=== PATIENT | female | born 1990 | race Caucasian/White ===

== ENCOUNTER 2019-05-16 19:20 | Emergency (ER) | payer SELFPAY ==
[2019-05-16] MEDS ORDERED: KETOROLAC TROMETHAMINE INJ/PF 30 MG/1 ML SDV IV ONE (19:50)
[2019-05-16] MEDS ORDERED: DIPHENHYDRAMINE HCL 50 MG/ML VIAL IV ONE (19:50)
[2019-05-16] MEDS ORDERED: METOCLOPRAMIDE HCL INJ/PF 10 MG/2 ML SDV IV ONE (19:50)
--- NOTE | 2019-05-16 19:53 | ER Document Report ---
ED Medical Screen (RME) - General Chief Complaint: Headache <24 hrs old Stated Complaint: LOW BACK PAIN,HEADACHE Time Seen by Provider: 05/16/19 19:43 Notes: Patient is a 28-year-old female who presents to the emergency department with a chief complaint of a headache and low back pain. Patient states that she gets headaches every once in a while and normally takes ibuprofen and Tylenol and it goes away. She ended up taking ibuprofen last night and went to sleep and did not have any relief of her symptoms. Patient states that she her headache is on the frontal area of her head, just above the eyebrows and goes back behind her eyes. Patient reports some photophobia. Exam: Tearful. 5 out of 5 strength in all extremities. I have greeted and performed a rapid initial assessment of this patient. A comprehensive ED assessment and evaluation of the patient, analysis of test results and completion of medical decision making process will be conducted by an additional ED providers. TRAVEL OUTSIDE OF THE [place] IN LAST 30 DAYS: No - Related Data Allergies/Adverse Reactions: codeine Allergy (Verified 05/16/19 19:50) Past Medical History - Social History Frequency of alcohol use: Occasional Physical Exam - Vital signs Vitals: Temp Pulse Resp BP Pulse Ox 97.8 F 84 18 131/76 H 100 05/16/19 19:28 05/16/19 19:28 05/16/19 19:28 05/16/19 19:28 05/16/19 19:28 Course - Vital Signs Vital signs: Temp Pulse Resp BP Pulse Ox 98.0 F 81 24 H 119/74 97 05/16/19 19:37 05/16/19 19:37 05/16/19 19:37 05/16/19 19:37 05/16/19 19:37
[2019-05-16 20:18] LABS: ABSOLUTE EOSINOPHILS # (AUTO) 0.2 10^3/uL (0.0-0.6); TOTAL CELLS COUNTED % (AUTO) 100 %
[2019-05-16 20:21] LABS: ABSOLUTE MONOCYTES (AUTO) 0.5 10^3/uL (0.1-1.4); ABSOLUTE NEUT (AUTO) 4.7 10^3/uL (1.7-8.2); BASOPHILS % (AUTO) 0.6 % (0-2); EOSINOPHILS % (AUTO) 3.1 % (0-6); HEMATOCRIT 43.3 % (36.0-47.0); HEMOGLOBIN 15.2 g/dL (12.0-15.5); LYMPHOCYTES % (AUTO) 26.4 % (13-45); MEAN CORPUSCULAR HEMOGLOBIN 33.8 pg (27.0-33.4); MEAN CORPUSCULAR HGB CONC 35.1 g/dL (32.0-36.0); MEAN CORPUSCULAR VOLUME 96 fl (80-97); MONOCYTES % (AUTO) 6.4 % (3-13); PLATELET COUNT 278 10^3/uL (150-450); RED BLOOD COUNT 4.49 10^6/uL (3.72-5.28); RED CELL DISTRIBUTION WIDTH 12.3 % (11.5-14.0); SEGMENTED NEUTROPHILS % (AUTO) 63.5 % (42-78); WHITE BLOOD COUNT 7.5 10^3/uL (4.0-10.5)
[2019-05-16 20:22] LABS: APPEARANCE,URINE SLIGHTLY-CLOUDY; BILIRUBIN,URINE NEGATIVE (NEGATIVE); COLOR,URINE YELLOW; GLUCOSE, URINE NEGATIVE (NEGATIVE); KETONES,URINE NEGATIVE (NEGATIVE); LEUKOCYTE ESTERASE,URINE SMALL (NEGATIVE); NITRITE,URINE NEGATIVE (NEGATIVE); PROTEIN,URINE NEGATIVE (NEGATIVE)
--- NOTE | 2019-05-16 20:24 | ER Document Report ---
HPI - HPI Time Seen by Provider: 05/16/19 19:43 Pain Level: 3 Notes: Patient is a 28-year-old female who presents to the emergency department with a chief complaint of a headache and low back pain. Patient states that she gets headaches every once in a while and normally takes ibuprofen and Tylenol and it goes away. She ended up taking ibuprofen last night and went to sleep and did not have any relief of her symptoms. Patient states that she her headache is on the frontal area of her head, just above the eyebrows and goes back behind her eyes. Patient reports some photophobia. - REPRODUCTIVE Reproductive: DENIES: : Past Medical History - General Information source: Patient - Social History Smoking Status: Never Smoker Frequency of alcohol use: Occasional Drug Abuse: None Family History: Reviewed & Not Pertinent Patient has suicidal ideation: No Patient has homicidal ideation: No Neurological Medical History: Reports: Hx Migraine Surgical Hx: Negative - Immunizations Immunizations up to date: Yes Vertical Provider Document - CONSTITUTIONAL Notes: PHYSICAL EXAMINATION: GENERAL: Well-appearing, well-nourished and in no acute distress. HEAD: Atraumatic, normocephalic. EYES: Pupils equal round and reactive to light, extraocular movements intact, conjunctiva are normal. ENT: Nares patent, oropharynx clear without exudates. Moist mucous membranes. NECK: Normal range of motion, supple without lymphadenopathy LUNGS: Breath sounds clear to auscultation bilaterally and equal. No wheezes rales or rhonchi. HEART: Regular rate and rhythm without murmurs ABDOMEN: Soft, nontender, nondistended abdomen. No guarding, no rebound. No masses appreciated. Female : No CVA tenderness. Musculoskeletal: Normal range of motion, no pitting or edema. No cyanosis. NEUROLOGICAL: Cranial nerves grossly intact. Normal speech, normal gait. Normal sensory, motor exams PSYCH: Normal mood, normal affect. SKIN: Warm, Dry, normal turgor, no rashes or lesions noted. - INFECTION CONTROL TRAVEL OUTSIDE OF THE [place] IN LAST 30 DAYS: No Course - Re-evaluation Re-evalutation: Laboratory 05/16/19 05/16/19 05/16/19 20:05 20:05 20:05 WBC 7.5 RBC 4.49 Hgb 15.2 Hct 43.3 MCV 96 MCH 33.8 H MCHC 35.1 RDW 12.3 Plt Count 278 Lymph % (Auto) 26.4 [place] % (Auto) 6.4 Eos % (Auto) 3.1 Baso % (Auto) 0.6 Absolute Neuts (auto) 4.7 Absolute Lymphs (auto) 2.0 Absolute Monos (auto) 0.5 Absolute Eos (auto) 0.2 Absolute Basos (auto) 0.0 Seg Neutrophils % 63.5 Sodium 143.6 Potassium 4.0 Chloride 107 Carbon Dioxide 25 Anion Gap 12 BUN 10 Creatinine 0.68 Est GFR ( Amer) > 60 Est GFR (MDRD) Non-Af > 60 Glucose 63 L Calcium 9.4 Total Bilirubin 0.8 Direct Bilirubin 0.2 Neonat Total Bilirubin Not Reportable Neonat Direct Bilirubin Not Reportable Neonat Indirect Bili Not Reportable AST 23 ALT 13 Alkaline Phosphatase 57 Total Protein 8.4 H Albumin 4.5 Serum HCG, Qual NEGATIVE Urine Color Urine Appearance Urine pH Ur Specific [place] Urine Protein Urine Glucose (UA) Urine Ketones Urine Blood Urine Nitrite Urine Bilirubin Urine Urobilinogen Ur Leukocyte Esterase Urine WBC (Auto) Urine RBC (Auto) U Hyaline Cast (Auto) Urine Bacteria (Auto) Squamous Epi Cells Auto Urine Mucus (Auto) Urine Ascorbic Acid 05/16/19 20:05 WBC RBC Hgb Hct MCV MCH MCHC RDW Plt Count Lymph % (Auto) [place] % (Auto) Eos % (Auto) Baso % (Auto) Absolute Neuts (auto) Absolute Lymphs (auto) Absolute Monos (auto) Absolute Eos (auto) Absolute Basos (auto) Seg Neutrophils % Sodium Potassium Chloride Carbon Dioxide Anion Gap BUN Creatinine Est GFR ( Amer) Est GFR (MDRD) Non-Af Glucose Calcium Total Bilirubin Direct Bilirubin Neonat Total Bilirubin Neonat Direct Bilirubin Neonat Indirect Bili AST ALT Alkaline Phosphatase Total Protein Albumin Serum HCG, Qual Urine Color YELLOW Urine Appearance SLIGHTLY-CLOUDY Urine pH 6.0 Ur Specific [place] 1.020 Urine Protein NEGATIVE Urine Glucose (UA) NEGATIVE Urine Ketones NEGATIVE Urine Blood NEGATIVE Urine Nitrite NEGATIVE Urine Bilirubin NEGATIVE Urine Urobilinogen 4.0 H Ur Leukocyte Esterase SMALL H Urine WBC (Auto) 45 Urine RBC (Auto) 1 U Hyaline Cast (Auto) 1 Urine Bacteria (Auto) TRACE Squamous Epi Cells Auto 13 Urine Mucus (Auto) OCC Urine Ascorbic Acid 40 H Labs as recorded above are unremarkable. Urinalysis shows small leukocyte esterase with 45 white blood cells. Will start patient on antibiotics for urinary tract infection. Urine culture pending. Patient reports headache has resolved after administration of migraine cocktail here in the emergency department. She has not had a fever and has no nuchal rigidity, no indication for further work-up at this time. Patient will be discharged home. Patient understands ED return precautions. The patient's emergency department workup and current diagnosis were explained to the patient and or family. Follow-up instructions were provided. Medications if prescribed were discussed. Instructions for when to return to the emergency department including specific worrisome symptoms were discussed with the patient and/or family. - Vital Signs Vital signs: Temp Pulse Resp BP Pulse Ox 98.0 F 81 24 H 119/74 97 05/16/19 19:37 05/16/19 19:37 05/16/19 19:37 05/16/19 19:37 05/16/19 19:37 - Laboratory Result Diagrams: 05/16/19 20:05 05/16/19 20:05 Laboratory results interpreted by me: 05/16/19 05/16/19 20:05 20:05 MCH 33.8 H Urine Urobilinogen 4.0 H Ur Leukocyte Esterase SMALL H Urine Ascorbic Acid 40 H Discharge - Discharge Clinical Impression: Migraine Qualifiers: Migraine type: unspecified Status migrainosus presence: without status migrainosus Intractability: not intractable Qualified Code(s): G43.909 - Migraine, unspecified, not intractable, without status migrainosus UTI (urinary tract infection) Qualifiers: Urinary tract infection type: site unspecified Hematuria presence: without hematuria Qualified Code(s): N39.0 - Urinary tract infection, site not specified Condition: Stable Disposition: HOME, SELF-CARE Additional Instructions: Your urine shows findings consistent with a urinary tract infection. Please take all the antibiotics as directed even if your symptoms have improved. Please follow-up with your primary care physician as needed. Return to emergency room if you develop fever >101F, persistent vomiting, become lethargic, have severe pain in your sides, or any other symptoms that are concerning to you. Prescriptions: Cephalexin [Keflex] 500 mg PO BID #14 capsule
[2019-05-16 20:49] LABS: ALBUMIN 4.5 g/dL (3.5-5.0); ALKALINE PHOSPHATASE 57 U/L (38-126); ANION GAP 12 (5-19); ASPARTATE AMINO TRANSFERASE 23 U/L (14-36); BILIRUBIN,DIRECT 0.2 mg/dL (0.0-0.4); BILIRUBIN,TOTAL 0.8 mg/dL (0.2-1.3); BLOOD UREA NITROGEN 10 mg/dL (7-20); CALCIUM 9.4 mg/dL (8.4-10.2); CARBON DIOXIDE 25 mmol/L (22-30); CHLORIDE 107 mmol/L (98-107); TOTAL PROTEIN 8.4 g/dL (6.3-8.2)
[2019-05-16 20:53] LABS: GLUCOSE 63 mg/dL (75-110)
[2019-05-16 23:16] VITALS: BP 127/92
== END 2019-05-16 23:11 | disposition home or self-care (01) ==
LOC: ER 19:20
DX: G43.909 Migraine, unspecified, not intractable, without status migrainosus (principal); N39.0 Urinary tract infection, site not specified; M54.5 Low back pain; H53.149 Visual discomfort, unspecified
CPT/HCPCS: 99284; 96374; 96375; 36415; 84703; 85025; 80053; 81001; J1200; J1885; J2765

== ENCOUNTER 2019-06-23 03:47 | Emergency (ER) | payer SELFPAY ==
[2019-06-23 05:15] LABS: APPEARANCE,URINE CLOUDY; BILIRUBIN,URINE NEGATIVE (NEGATIVE); COLOR,URINE AMBER; GLUCOSE, URINE NEGATIVE (NEGATIVE); KETONES,URINE TRACE mg/dL (NEGATIVE); LEUKOCYTE ESTERASE,URINE MODERATE (NEGATIVE); NITRITE,URINE POSITIVE (NEGATIVE); PROTEIN,URINE 30 mg/dL (NEGATIVE); URINE SPECIFIC GRAVITY 1.029
[2019-06-23 09:29] VITALS: BP 99/58
--- NOTE | 2019-06-23 09:59 | ER Document Report ---
ED General - General Chief Complaint: Back Pain Stated Complaint: BACK PAIN Time Seen by Provider: 06/23/19 09:23 Notes: 28-year-old female presents with low back pain that started yesterday. Patient states similar symptoms and was diagnosed with a urinary tract infection. Patient denies any fever, abdominal pain, nausea/vomiting, dysuria, urinary urgency/frequency, hematuria. Patient denies any recent injuries. TRAVEL OUTSIDE OF THE [place] IN LAST 30 DAYS: No - Related Data Allergies/Adverse Reactions: codeine Allergy (Verified 06/23/19 08:44) Past Medical History - Social History Smoking Status: Never Smoker Family History: Reviewed & Not Pertinent Patient has suicidal ideation: No Patient has homicidal ideation: No Neurological Medical History: Reports: Hx Migraine Past Surgical History: Reports: Hx Tubal Ligation - Immunizations Immunizations up to date: Yes Review of Systems - Review of Systems Notes: Constitutional: Negative for fever. HENT: Negative for sore throat. Eyes: Negative for visual changes. Cardiovascular: Negative for chest pain. Respiratory: Negative for shortness of breath. Gastrointestinal: Negative for abdominal pain, vomiting or diarrhea. Genitourinary: Negative for dysuria. Musculoskeletal: Positive for back pain. Skin: Negative for rash. Neurological: Negative for headaches, weakness or numbness. 10 point ROS negative except as marked above and in HPI. Physical Exam - Vital signs Vitals: Temp Pulse Resp BP Pulse Ox 97.9 F 67 19 101/67 99 06/23/19 03:53 06/23/19 03:53 06/23/19 03:53 06/23/19 03:53 06/23/19 03:53 - Notes Notes: GENERAL: Well-appearing, well-nourished and in no acute distress. HEAD: Atraumatic, normocephalic. EYES: Extraocular movements intact, sclera anicteric, conjunctiva are normal. NECK: Normal range of motion, supple without lymphadenopathy or JVD. ABDOMEN: Soft, nontender. No guarding, no rebound. No masses appreciated. No CVA tenderness. EXTREMITIES: Normal range of motion, no pitting or edema. No clubbing or cyanosis. NEUROLOGICAL: Cranial nerves II through XII grossly intact. Normal speech, normal gait. PSYCH: Normal mood, normal affect. SKIN: Warm, Dry, normal turgor, no rashes or lesions noted. Course - Re-evaluation Re-evalutation: 06/23/19 nontoxic, well-appearing 28-year-old female presents with low back pain. Similar symptoms previously and diagnosed with UTI. Patient is afebrile abdomen soft nontender. No CVA tenderness. PE is otherwise unremarkable. UA shows positive nitrates, moderate leukocyte esterase, 50 WBCs, 10 RBCs, 1+ bacteria. We will treat patient for UTI and send urine for culture. Patient given referral to PCP. Return precautions given. Patient voices understanding and agrees with plan of care. - Vital Signs Vital signs: Temp Pulse Resp BP Pulse Ox 97.9 F 66 17 99/58 L 100 06/23/19 09:27 06/23/19 09:27 06/23/19 09:27 06/23/19 09:27 06/23/19 09:27 - Laboratory Laboratory results interpreted by me: 06/23/19 04:30 Urine Protein 30 H Urine Ketones TRACE H Urine Nitrite POSITIVE H Urine Urobilinogen 2.0 H Ur Leukocyte Esterase MODERATE H Urine Ascorbic Acid 40 H Discharge - Discharge Clinical Impression: Acute UTI Condition: Stable Disposition: HOME, SELF-CARE Additional Instructions: Please take Macrobid as prescribed and finish all doses even if you feel better unless we call you to change it based off your urine culture. Please follow-up with 1 of the clinics listed in 3 to 5 days. Return to ER for any worsening symptoms, including fever, abdominal pain, flank pain, nausea/vomiting, or any other symptoms that are concerning to you. Prescriptions: Nitrofurantoin/Nitrofuran Mac [Macrobid 100 mg Capsule] 1 tab PO BID #14 capsule Forms: Return to Work Referrals: TWIN JOHNSON MD [COMMUNITY BASED STAFF] - Follow up in 3-5 days [facility] [Provider Group] - Follow up in 3-5 days
== END 2019-06-23 10:00 | disposition home or self-care (01) ==
LOC: ER 03:47
DX: N39.0 Urinary tract infection, site not specified (principal); M54.5 Low back pain; Z88.6 Allergy status to analgesic agent; Z88.5 Allergy status to narcotic agent
CPT/HCPCS: 81001; 81025; 87086; 87088; 87186; 99283

== ENCOUNTER 2019-06-25 02:38 | Emergency (ER) | payer OTHER ==
[2019-06-25] MEDS ORDERED: LIDOCAINE 4%/TETRACAINE 0.5%/EPI 0.18% 5 ML TOPICAL SOLN TOP ONE (05:02)
[2019-06-25] MEDS ORDERED: DIPH/PERTUSS(ACELL)/TETANUS VAC/PF 0.5 ML SYR (>=10YO) IM ONE (05:07)
[2019-06-25] MEDS ORDERED: IBUPROFEN 800 MG TABLET PO ONE (05:07)
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
[2019-06-25] MEDS ORDERED: LIDOCAINE 1% INJ-PF (10 MG/ML) 30 ML SDV INJ ONE (06:31)
[2019-06-25 08:45] VITALS: BP 107/72
== END 2019-06-25 08:20 | disposition home or self-care (01) ==
LOC: ER 02:38
DX: S01.81XA Laceration without foreign body of other part of head, initial encounter (principal); M25.552 Pain in left hip; V49.9XXA Car occupant (driver) (passenger) injured in unspecified traffic accident, initial encounter; Z98.51 Tubal ligation status; Z23 Encounter for immunization
CPT/HCPCS: 99283; 90471; 70150; 73502; 90715; 12013; J3490 ×2